=== PATIENT | female | born 1955 | race Caucasian/White ===

== ENCOUNTER 2017-08-28 15:24 | Day surgery (SDC) | payer BC ==
[~2017-08-28] VITALS: Ht 177.8 cm; Wt 77.7 kg
[2017-08-28] VITALS (7 sets, daily range): BP systolic 114–147; BP diastolic 57–79; PULSE 74–100; TEMP 98.4
[2017-08-29 00:45] VITALS: BP 100/58; PULSE 73
[2017-08-29 01:45] VITALS: BP 127/64; PULSE 83
[2017-08-29 04:07] VITALS: BP 117/60; PULSE 80; TEMP 98.6
[2017-08-29 06:33] LABS: BASO % 0.3 % (0.0-2.0); EOS # 0.2 (0.0-0.7); EOS % 2.2 % (0-4.0); GRAN # 7.6 (1.4-6.5); HEMATOCRIT 37.2 % (37.0-47.0); HEMOGLOBIN 12.3 g/dl (12.5-16.0); LYMPH # 1.9 (1.2-3.4); LYMPH % 18.4 % (20.0-51.0); MEAN CELL VOLUME 93 fl (80.0-100.0); MEAN CORPUSCULAR HEMOGLOBIN 31 pg (27.0-31.0); MEAN CORPUSCULAR HGB CONC 33 g/dl (33.0-37.0); MEAN PLATELET VOLUME 8.8 fl (7.4-10.4); MONO # 0.7 (0.1-0.6); MONO % 6.7 % (1.7-9.3); PLATELET COUNT 303 K/mm3 (130-400); RED BLOOD COUNT 3.99 M/mm3 (4.10-5.30)
[2017-08-29 06:41] LABS: CALCIUM 9.6 mg/dL (8.4-10.2); CREATININE, serum 0.7 mg/dL (0.52-1.25); POTASSIUM 3.8 mmol/L (3.4-5.0)
[2017-08-29 08:13] VITALS: BP 112/54; PULSE 70; TEMP 98.4
[2017-08-29 10:51] VITALS: BP 101/42; PULSE 81; TEMP 98.5
== END 2017-08-29 12:51 | disposition home or self-care (01) ==
LOC: SDCO 15:24 → SURG 22:12 → SDCO 08-29 12:51
PROVIDERS: Urology
DX: N32.89 Other specified disorders of bladder (principal); F17.210 Nicotine dependence, cigarettes, uncomplicated; Z85.828 Personal history of other malignant neoplasm of skin; Z83.3 Family history of diabetes mellitus
CPT/HCPCS: OP; C1769; J0690; J2405; J2704; J3010; J7120; Q9967

== ENCOUNTER → 2017-09-14 | Outpatient (CLI) | payer BC | LOC: COL.VAS 13:18 | DX: Z01.810 Encounter for preprocedural cardiovascular examination (principal); C67.2 Malignant neoplasm of lateral wall of bladder ==

== ENCOUNTER 2017-10-26 11:11 | Outpatient (RCR) | payer BC ==
[2017-10-26] VITALS (10 sets, daily range): BP systolic 110–141; BP diastolic 59–82; PULSE 80–91; TEMP 98.3–99.2
[2017-10-26] MEDS ORDERED: COMPAZINE 110 MG/TAB PO (14:05)
[2017-10-26] MEDS ORDERED: NORCO 325 MG-51 TAB PO (14:06)
[2017-10-26] MEDS ORDERED: LEXAPRO 10MG10 MG PO (14:06)
[2017-10-26] MEDS ORDERED: DIPHEN PO (14:08)
[2017-10-26] MEDS ORDERED: LIDO PO (14:08)
[2017-10-26] MEDS ORDERED: ANTACID PO (14:08)
== END 2017-10-26 18:00 | disposition home or self-care (01) ==
LOC: EUO 11:11 → EDSTATUS 11:30 → EUO 18:00
DX: C67.2 Malignant neoplasm of lateral wall of bladder (principal); D64.81 Anemia due to antineoplastic chemotherapy; Z92.21 Personal history of antineoplastic chemotherapy
CPT/HCPCS: J1644; J7050; P9016

== ENCOUNTER 2017-11-25 09:25 | Inpatient (IN) | payer BC ==
[~2017-11-25] VITALS: Ht 177.8 cm; Wt 64.7 kg
[~2017-11-25 09:25] MED LIST: ANTACID PO; COMPAZINE 110 MG/TAB PO; DIPHEN PO; LEXAPRO 10MG10 MG PO; LIDO PO; NORCO 325 MG-51 TAB PO
[2017-11-25 10:25] LABS: MEAN CELL VOLUME 93 fl (80.0-100.0); MEAN CORPUSCULAR HGB CONC 33 g/dl (33.0-37.0); RED BLOOD COUNT 2.61 M/mm3 (4.10-5.30); REDCELL DISTRIBUTION WIDTH-CV 17.4 % (11.5-14.5)
[2017-11-25 10:42] LABS: HEMATOCRIT 24.3 % (37.0-47.0); HEMOGLOBIN 7.9 g/dl (12.5-16.0); MEAN CORPUSCULAR HEMOGLOBIN 30 pg (27.0-31.0)
[2017-11-25 10:43] LABS: PLATELET COUNT 43 K/mm3 (130-400)
[2017-11-25 10:47] LABS: ALBUMIN 3.6 gm/dL (3.5-5.0); BILIRUBIN,TOTAL 0.8 mg/dL (0.0-1.0); CALCIUM 9.3 mg/dL (8.4-10.2); CREATININE, serum 1.15 mg/dL (0.52-1.25); POTASSIUM 3.3 mmol/L (3.4-5.0); TOTAL PROTEIN 6.6 gm/dL (6.4-8.2)
[2017-11-25 10:55] LABS: BAND 7 % (0-10); BASOPHIL 3 % (0-2); EOSINOPHIL 7 % (0-4); LYMPHOCYTE 73 % (20.0-51.0); NEUTROPHILS 7 % (42.0-75.2); PLATELET ESTIMATE DECREASED (NORMAL)
[2017-11-25 10:56] LABS: HYPOCHROMIA 1+
[2017-11-25 11:17] LABS: COLLECTION METHOD CLEAN CATCH
[2017-11-25 11:26] LABS: MUCOUS Present /lpf; PH 5 (5-8); URINE APPEARANCE Cloudy; URINE BACTERIA Moderate /hpf; URINE BILIRUBIN Negative (NEGATIVE); URINE BLOOD 3+ (NEGATIVE); URINE COLOR Yellow; URINE GLUCOSE Negative (NEGATIVE); URINE KETONE Negative (NEGATIVE); URINE LEUKOCYTE ESTERASE 2+ (NEGATIVE); URINE NITRATE Positive (NEGATIVE); URINE PROTEIN(semi-quant) 2+ (NEGATIVE); URINE RBC >50 /hpf; URINE UROBILINOGEN Negative (NEGATIVE)
[2017-11-25 13:03] VITALS: BP 94/43; PULSE 97; TEMP 98.8
[2017-11-25 16:19] VITALS: BP 127/51; PULSE 93; TEMP 97.6
[2017-11-25 20:00] VITALS: BP 134/68; PULSE 106; TEMP 99.4
[2017-11-26] VITALS (7 sets, daily range): BP systolic 105–146; BP diastolic 59–76; PULSE 91–103; TEMP 98–99.6
[2017-11-26 06:40] LABS: MEAN CELL VOLUME 93 fl (80.0-100.0); MEAN CORPUSCULAR HGB CONC 33 g/dl (33.0-37.0); RED BLOOD COUNT 2.04 M/mm3 (4.10-5.30); REDCELL DISTRIBUTION WIDTH-CV 17.1 % (11.5-14.5)
[2017-11-26 06:52] LABS: ALBUMIN 2.7 gm/dL (3.5-5.0); BILIRUBIN,TOTAL 0.6 mg/dL (0.0-1.0); CALCIUM 8.4 mg/dL (8.4-10.2); CREATININE, serum 0.98 mg/dL (0.52-1.25); MAGNESIUM 1.6 mg/dL (1.6-2.3); PHOSPHOROUS 2.3 mg/dL (2.5-4.5); TOTAL PROTEIN 5.4 gm/dL (6.4-8.2)
[2017-11-26 06:56] LABS: HEMATOCRIT 18.9 % (37.0-47.0); MEAN CORPUSCULAR HEMOGLOBIN 30 pg (27.0-31.0)
[2017-11-26 06:57] LABS: HEMOGLOBIN 6.2 g/dl (12.5-16.0); PLATELET COUNT 23 K/mm3 (130-400)
[2017-11-26 07:17] LABS: BAND 6 % (0-10); EOSINOPHIL 10 % (0-4); NEUTROPHILS 10 % (42.0-75.2)
[2017-11-26 07:19] LABS: LYMPHOCYTE 72 % (20.0-51.0); PLATELET ESTIMATE DECREASED (NORMAL)
[2017-11-26 16:53] LABS: MEAN CELL VOLUME 91 fl (80.0-100.0); MEAN CORPUSCULAR HGB CONC 34 g/dl (33.0-37.0); MEAN PLATELET VOLUME 11.6 fl (7.4-10.4); RED BLOOD COUNT 2.38 M/mm3 (4.10-5.30); REDCELL DISTRIBUTION WIDTH-CV 16.8 % (11.5-14.5)
[2017-11-26 17:10] LABS: HEMATOCRIT 21.7 % (37.0-47.0); HEMOGLOBIN 7.3 g/dl (12.5-16.0); MEAN CORPUSCULAR HEMOGLOBIN 31 pg (27.0-31.0); PLATELET COUNT 17 K/mm3 (130-400)
[2017-11-26 17:13] LABS: BAND 3 % (0-10); EOSINOPHIL 3 % (0-4); LYMPHOCYTE 70 % (20.0-51.0); NEUTROPHILS 24 % (42.0-75.2)
[2017-11-26 17:14] LABS: ANISOCYTOSIS 2+; HYPOCHROMIA 1+; PLATELET ESTIMATE DECREASED (NORMAL)
[2017-11-26 17:15] LABS: MICROCYTOSIS 1+
[2017-11-27] VITALS (8 sets, daily range): BP systolic 112–136; BP diastolic 58–71; PULSE 81–100; TEMP 97.4–98.7
[2017-11-27 06:20] LABS: CALCIUM 8.7 mg/dL (8.4-10.2); CREATININE, serum 0.88 mg/dL (0.52-1.25); MAGNESIUM 1.6 mg/dL (1.6-2.3); PHOSPHOROUS 1.8 mg/dL (2.5-4.5); POTASSIUM 4.2 mmol/L (3.4-5.0)
[2017-11-27 08:18] LABS: HEMATOCRIT 23.4 % (37.0-47.0); HEMOGLOBIN 7.7 g/dl (12.5-16.0); MEAN CELL VOLUME 93 fl (80.0-100.0); MEAN CORPUSCULAR HEMOGLOBIN 31 pg (27.0-31.0); MEAN CORPUSCULAR HGB CONC 33 g/dl (33.0-37.0); MEAN PLATELET VOLUME 10.7 fl (7.4-10.4); RED BLOOD COUNT 2.52 M/mm3 (4.10-5.30); REDCELL DISTRIBUTION WIDTH-CV 17.4 % (11.5-14.5)
[2017-11-27 08:19] LABS: PLATELET COUNT 12 K/mm3 (130-400)
[2017-11-27 08:50] LABS: BAND 19 % (0-10); BASOPHIL 3 % (0-2); EOSINOPHIL 2 % (0-4); LYMPHOCYTE 54 % (20.0-51.0); NEUTROPHILS 20 % (42.0-75.2); PLATELET ESTIMATE DECREASED (NORMAL)
[2017-11-27 08:51] LABS: ANISOCYTOSIS 1+
[2017-11-27] MEDS ORDERED: ZOVIRAX400 MG PO (15:49)
[2017-11-27] MEDS ORDERED: DOXYCYCLINE HY100 MG PO (15:49)
[2017-11-27] MEDS ORDERED: MAGIC MOUTH PO (15:50)
[2017-11-27] MEDS ORDERED: K-PHOS ORIGINA500 MG PO (16:08)
== END 2017-11-27 17:35 | disposition home or self-care (01) | DRG 871 ==
LOC: COL.ER 09:25 → SURG 11:42
PROVIDERS: Family Medicine; Internal Medicine; Physician Assistant
DX: A41.89 Other specified sepsis (principal); E43 Unspecified severe protein-calorie malnutrition; N39.0 Urinary tract infection, site not specified; D61.818 Other pancytopenia; C67.8 Malignant neoplasm of overlapping sites of bladder; F17.210 Nicotine dependence, cigarettes, uncomplicated; E86.0 Dehydration; E87.6 Hypokalemia; K12.31 Oral mucositis (ulcerative) due to antineoplastic therapy; B95.7 Other staphylococcus as the cause of diseases classified elsewhere; Z68.20 Body mass index [BMI] 20.0-20.9, adult; E83.42 Hypomagnesemia
CPT/HCPCS: 99232-AI; 99239; A4216; J0133; J0692; J2543; J3010; J3370; J3475; J3480; J7030; J7050; P9037; P9040

== ENCOUNTER 2017-12-11 14:36 | Inpatient (IN) | payer BC ==
[~2017-12-11] VITALS: Ht 177.8 cm; Wt 64.1 kg
[~2017-12-11 14:36] MED LIST changes: -CEPHALEXIN500 M1 PO; -DITROPAN XL 5MG5 M1 PO; -ELIQUIS 5MG PO; -MAG-OX 400400 MG/TAB PO; -NORVASC2.5 MG PO
[2017-12-11] MEDS ORDERED: MAG-OX 400400 MG/TAB PO (15:43)
[2017-12-11] MEDS ORDERED: ELIQUIS 5MG PO (15:44)
[2017-12-11 15:49] VITALS: BP 161/79; PULSE 102; TEMP 97.4
[2017-12-11 16:56] LABS: ALBUMIN 3.5 gm/dL (3.5-5.0); BILIRUBIN,TOTAL 0.4 mg/dL (0.0-1.0); MAGNESIUM 2.4 mg/dL (1.6-2.3); PHOSPHOROUS 4.9 mg/dL (2.5-4.5); POTASSIUM 5.5 mmol/L (3.4-5.0); TOTAL PROTEIN 6.9 gm/dL (6.4-8.2)
[2017-12-11 17:00] LABS: COLLECTION METHOD CLEAN CATCH
[2017-12-11 17:05] LABS: CREATININE, serum 4.26 mg/dL (0.52-1.25)
[2017-12-11 17:15] LABS: BASO # 0.1 (0.0-0.2); BASO % 0.6 % (0.0-2.0); EOS % 0.2 % (0-4.0); GRAN # 9.4 (1.4-6.5); GRAN % 74.8 % (42.2-75.2); LYMPH # 1.8 (1.2-3.4); MEAN CELL VOLUME 96 fl (80.0-100.0); MEAN CORPUSCULAR HGB CONC 32 g/dl (33.0-37.0); MEAN PLATELET VOLUME 8.8 fl (7.4-10.4); MONO # 1.2 (0.1-0.6); MONO % 9.4 % (1.7-9.3); PLATELET COUNT 355 K/mm3 (130-400); RED BLOOD COUNT 2.53 M/mm3 (4.10-5.30); REDCELL DISTRIBUTION WIDTH-CV 19.5 % (11.5-14.5)
[2017-12-11 17:17] LABS: HEMATOCRIT 24.4 % (37.0-47.0); HEMOGLOBIN 7.8 g/dl (12.5-16.0); MEAN CORPUSCULAR HEMOGLOBIN 31 pg (27.0-31.0)
[2017-12-11 17:21] LABS: INR 1.1 (0.8-3.0); PROTHROMBIN TIME 12.5 SECONDS (9.7-12.8)
[2017-12-11 17:22] LABS: PH 7 (5-8); URINE APPEARANCE Clear; URINE BACTERIA Rare /hpf; URINE BILIRUBIN Negative (NEGATIVE); URINE BLOOD 1+ (NEGATIVE); URINE COLOR Yellow; URINE GLUCOSE Negative (NEGATIVE); URINE KETONE Negative (NEGATIVE); URINE LEUKOCYTE ESTERASE Trace (NEGATIVE); URINE NITRATE Negative (NEGATIVE); URINE PROTEIN(semi-quant) 2+ (NEGATIVE); URINE UROBILINOGEN Negative (NEGATIVE)
[2017-12-11 17:24] LABS: PARTIAL THROMBOPLASTIN TIME 31.1 SECONDS (26.0-37.0)
[2017-12-11 17:24] LABS: CREATININE, serum 4.26 mg/dL (0.52-1.25)
[2017-12-11 17:36] LABS: FRACTIONAL EXCRETION OF NA+ 3.3 %
[2017-12-11 19:31] VITALS: BP 159/74; PULSE 105; TEMP 98.6
[2017-12-12] VITALS (12 sets, daily range): BP systolic 140–174; BP diastolic 75–733; PULSE 76–97; TEMP 97.6–98.7
[2017-12-12 04:03] LABS: BASO # 0.1 (0.0-0.2); BASO % 0.7 % (0.0-2.0); EOS # 0.1 (0.0-0.7); EOS % 0.4 % (0-4.0); GRAN # 8.3 (1.4-6.5); GRAN % 71.6 % (42.2-75.2); LYMPH % 17.2 % (20.0-51.0); MEAN CELL VOLUME 97 fl (80.0-100.0); MEAN CORPUSCULAR HGB CONC 32 g/dl (33.0-37.0); MEAN PLATELET VOLUME 8.3 fl (7.4-10.4); MONO # 1.1 (0.1-0.6); MONO % 9.4 % (1.7-9.3); PLATELET COUNT 373 K/mm3 (130-400); RED BLOOD COUNT 2.41 M/mm3 (4.10-5.30); REDCELL DISTRIBUTION WIDTH-CV 19.3 % (11.5-14.5)
[2017-12-12 04:06] LABS: HEMATOCRIT 23.4 % (37.0-47.0); HEMOGLOBIN 7.4 g/dl (12.5-16.0); MEAN CORPUSCULAR HEMOGLOBIN 31 pg (27.0-31.0)
[2017-12-12 04:13] LABS: ALBUMIN 3.1 gm/dL (3.5-5.0); BILIRUBIN,TOTAL 0.4 mg/dL (0.0-1.0); CALCIUM 9.6 mg/dL (8.4-10.2); MAGNESIUM 2.3 mg/dL (1.6-2.3); PHOSPHOROUS 5.9 mg/dL (2.5-4.5); POTASSIUM 5.7 mmol/L (3.4-5.0); TOTAL PROTEIN 6.3 gm/dL (6.4-8.2)
[2017-12-12 04:16] LABS: CREATININE, serum 4.72 mg/dL (0.52-1.25)
[2017-12-13] VITALS (16 sets, daily range): BP systolic 120–173; BP diastolic 76–96; PULSE 87–111; TEMP 97.6–98.7
[2017-12-13 10:08] LABS: BASO # 0.1 (0.0-0.2); BASO % 0.3 % (0.0-2.0); EOS % 0.1 % (0-4.0); GRAN # 10.7 (1.4-6.5); GRAN % 74.8 % (42.2-75.2); HEMATOCRIT 24.5 % (37.0-47.0); HEMOGLOBIN 7.6 g/dl (12.5-16.0); LYMPH # 2.4 (1.2-3.4); LYMPH % 16.6 % (20.0-51.0); MEAN CELL VOLUME 98 fl (80.0-100.0); MEAN CORPUSCULAR HEMOGLOBIN 30 pg (27.0-31.0); MEAN CORPUSCULAR HGB CONC 31 g/dl (33.0-37.0); MEAN PLATELET VOLUME 8.7 fl (7.4-10.4); MONO % 6.9 % (1.7-9.3); PLATELET COUNT 311 K/mm3 (130-400); REDCELL DISTRIBUTION WIDTH-CV 19.1 % (11.5-14.5)
[2017-12-13 10:19] LABS: ALBUMIN 3.1 gm/dL (3.5-5.0); CALCIUM 9.6 mg/dL (8.4-10.2); PHOSPHOROUS 7.5 mg/dL (2.5-4.5); POTASSIUM 4.8 mmol/L (3.4-5.0)
[2017-12-13 10:21] LABS: CREATININE, serum 4.92 mg/dL (0.52-1.25)
[2017-12-14 00:17] VITALS: BP 144/69; PULSE 83; TEMP 98.2
[2017-12-14 04:31] LABS: MEAN CELL VOLUME 97 fl (80.0-100.0); MEAN CORPUSCULAR HGB CONC 32 g/dl (33.0-37.0); MEAN PLATELET VOLUME 8.4 fl (7.4-10.4); PLATELET COUNT 303 K/mm3 (130-400); RED BLOOD COUNT 2.54 M/mm3 (4.10-5.30)
[2017-12-14 04:32] LABS: HEMATOCRIT 24.7 % (37.0-47.0); HEMOGLOBIN 7.8 g/dl (12.5-16.0); MEAN CORPUSCULAR HEMOGLOBIN 31 pg (27.0-31.0)
[2017-12-14 04:43] LABS: ALBUMIN 3.2 gm/dL (3.5-5.0); CALCIUM 9.2 mg/dL (8.4-10.2); CREATININE, serum 3.74 mg/dL (0.52-1.25); PHOSPHOROUS 6.8 mg/dL (2.5-4.5); POTASSIUM 3.8 mmol/L (3.4-5.0)
[2017-12-14 04:53] LABS: BAND 2 % (0-10); BASOPHIL 1 % (0-2); LYMPHOCYTE 16 % (20.0-51.0); MYELOCYTE 1 % (0-0); NEUTROPHILS 75 % (42.0-75.2)
[2017-12-14 04:55] LABS: ANISOCYTOSIS 2+; HYPOCHROMIA 2+; PLATELET ESTIMATE NORMAL (NORMAL)
[2017-12-14 04:57] LABS: MICROCYTOSIS 1+; TARGET CELLS 1+
[2017-12-14 05:27] VITALS: BP 161/84; PULSE 99
[2017-12-14 08:00] VITALS: BP 154/89; PULSE 105; TEMP 98.7
[2017-12-14 08:27] LABS: PATHOLOGY DIFF REVIEW OK
[2017-12-14 12:00] VITALS: BP 147/80; PULSE 102
[2017-12-14 17:36] VITALS: BP 148/73; PULSE 99; TEMP 98.7
[2017-12-14 19:30] VITALS: BP 138/78; PULSE 95; TEMP 98.2
[2017-12-15 00:13] VITALS: BP 139/79; PULSE 95; TEMP 98.1
[2017-12-15 03:46] VITALS: BP 151/77; PULSE 100; TEMP 98.2
[2017-12-15 05:43] LABS: MEAN CELL VOLUME 95 fl (80.0-100.0); MEAN CORPUSCULAR HGB CONC 32 g/dl (33.0-37.0); MEAN PLATELET VOLUME 8.1 fl (7.4-10.4); PLATELET COUNT 259 K/mm3 (130-400); RED BLOOD COUNT 2.49 M/mm3 (4.10-5.30); REDCELL DISTRIBUTION WIDTH-CV 18.5 % (11.5-14.5)
[2017-12-15 05:46] LABS: HEMATOCRIT 23.6 % (37.0-47.0); HEMOGLOBIN 7.6 g/dl (12.5-16.0); MEAN CORPUSCULAR HEMOGLOBIN 31 pg (27.0-31.0)
[2017-12-15 06:08] LABS: ALBUMIN 3.1 gm/dL (3.5-5.0); CALCIUM 8.9 mg/dL (8.4-10.2); CREATININE, serum 2.32 mg/dL (0.52-1.25); MAGNESIUM 1.4 mg/dL (1.6-2.3); PHOSPHOROUS 4.6 mg/dL (2.5-4.5); POTASSIUM 3.1 mmol/L (3.4-5.0)
[2017-12-15 07:56] VITALS: BP 140/81; PULSE 97; TEMP 98.5
[2017-12-15 08:52] LABS: BAND 7 % (0-10); BASOPHIL 1 % (0-2); LYMPHOCYTE 12 % (20.0-51.0); NEUTROPHILS 77 % (42.0-75.2); PLATELET ESTIMATE NORMAL (NORMAL)
[2017-12-15 11:23] VITALS: BP 131/80; PULSE 88; TEMP 98.3
[2017-12-15] MEDS ORDERED: DITROPAN XL 5MG5 M1 PO (12:29)
[2017-12-15] MEDS ORDERED: NORVASC2.5 MG PO (12:29)
[2017-12-15] MEDS ORDERED: CEPHALEXIN500 M1 PO (12:30)
== END 2017-12-15 15:50 | disposition home health service (06) | DRG 660 ==
LOC: MEDICAL 14:36
PROVIDERS: Internal Medicine Nephrology; Physician Assistant; Urology
PROC: 0T768DZ Dilation of Right Ureter with Intraluminal Device, Via Natural or Artificial Opening Endoscopic (ICD-10-PCS; principal; 2017-12-12 18:00)
PROC: 0T9430Z Drainage of Left Kidney Pelvis with Drainage Device, Percutaneous Approach (ICD-10-PCS; 2017-12-13)
DX: N17.9 Acute kidney failure, unspecified (principal); I82.C11 Acute embolism and thrombosis of right internal jugular vein; N13.6 Pyonephrosis; E86.0 Dehydration; Z85.51 Personal history of malignant neoplasm of bladder; D64.81 Anemia due to antineoplastic chemotherapy; F17.210 Nicotine dependence, cigarettes, uncomplicated; E87.5 Hyperkalemia; E83.41 Hypermagnesemia; E83.39 Other disorders of phosphorus metabolism; E83.52 Hypercalcemia
CPT/HCPCS: 99222-AI; 99232-AI; 99233-AI; 99239; A4216; A4314; C1769; C2617; J0690; J0696; J1100; J1644; J2250; J2405; J2704; J3010; J3475; J7030

== ENCOUNTER → 2017-12-11 | Outpatient (CLI) | payer BC ==
[~2017-12-11] MED LIST changes: +CEPHALEXIN500 M1 PO; +DITROPAN XL 5MG5 M1 PO; +DOXYCYCLINE HY100 MG PO; +ELIQUIS 5MG PO; +K-PHOS ORIGINA500 MG PO; +MAG-OX 400400 MG/TAB PO; +MAGIC MOUTH PO; +NORVASC2.5 MG PO; +ZOVIRAX400 MG PO
== END ==
LOC: COL.VAS 10:16
DX: C67.2 Malignant neoplasm of lateral wall of bladder (principal); I82.C11 Acute embolism and thrombosis of right internal jugular vein; I82.611 Acute embolism and thrombosis of superficial veins of right upper extremity

== ENCOUNTER 2018-01-02 10:09 | Outpatient (RCR) | payer BC ==
[2018-01-02] VITALS (8 sets, daily range): BP systolic 103–124; BP diastolic 59–83; PULSE 40–88; TEMP 98–98.4
[~2018-01-02 10:09] MED LIST changes: +CEPHALEXIN500 M1 PO; +DITROPAN XL 5MG5 M1 PO; +ELIQUIS 5MG PO; +MAG-OX 400400 MG/TAB PO; +NORVASC2.5 MG PO
== END 2018-01-02 15:47 | disposition home or self-care (01) ==
LOC: EUO 10:09
DX: D64.81 Anemia due to antineoplastic chemotherapy (principal)
CPT/HCPCS: J7050; P9016